=== PATIENT | female | born 1935 | race Caucasian/White ===

== ENCOUNTER 2022-09-16 11:35 | Day surgery (SDC) | payer MEDICARE, OTHER, SELFPAY ==
[2022-09-16] VITALS (7 sets, daily range): BP systolic 100–159; BP diastolic 51–78; PULSE 74–88; RESP 13–19; TEMP 36.3–36.7; O2SAT 83–98; BMI 29.2
--- NOTE | 2022-09-16 | PATH_ITS ---
[facility] Accession Number: [id number] No. of containers..05 Tissue . 01 Material submitted: . PART A: gastrointestinal site - ANTRUM BIOPSY PART B: gastrointestinal site - ANGULARIS BIOPSY PART C: gastrointestinal site - LESSER CURVATURE BIOPSY PART D: gastrointestinal site - GREATER CURVATURE BIOPSY PART E: gastrointestinal site - GASTRIC BODY BIOPSY . 01 Diagnosis: A. Stomach, Antrum, Biopsy: Antral mucosa with mild chronic gastritis. Negative for Helicobacter by immunohistochemistry. Negative for intestinal metaplasia. Negative for dysplasia and malignancy. . B. Stomach, Angularis, Biopsy: Body-type mucosa with mild chronic gastritis. Negative for Helicobacter by immunohistochemistry. Negative for intestinal metaplasia. Negative for dysplasia and malignancy. . C. Lesser Curvature, Biopsy: Body-type mucosa with mild chronic gastritis. No evidence of Helicobacter on H/E stain. Negative for intestinal metaplasia. Negative for dysplasia and malignancy. . D. Stomach, Greater Curvature, Biopsy: Body-type mucosa with proton inhibitor-like changes. No evidence of Helicobacter on H/E stain. Negative for intestinal metaplasia. Negative for dysplasia and malignancy. . E. Stomach, Body, Biopsy: Superficial fragments of body-type mucosa with mild chronic inflammation. Negative for Helicobacter by immunohistochemistry. Negative for intestinal metaplasia. Negative for dysplasia and malignancy. [facility] 09/23/2022 1357 Local . 01 Electronically signed: . Kalee Davis MD, Pathologist NPI- [id number] . 01 Gross description: . Part A: ANTRUM BIOPSY: Received in formalin are 2 fragment(s) of forde, soft tissue measuring 0.3 x 0.1 x 0.1 cm to 0.3 x 0.1 x 0.1 cm submitted entirely in 1 cassette(s) Part B: ANGULARIS BIOPSY: Received in formalin are 2 fragment(s) of forde, soft tissue measuring 0.2 x 0.1 x 0.1 cm to 0.1 x 0.1 x 0.1 cm submitted entirely in 1 cassette(s) Part C: LESSER CURVATURE BIOPSY: Received in formalin is 1 fragment(s) of forde, soft tissue measuring 0.3 x 0.2 x 0.1 cm submitted entirely in 1 cassette(s) Part D: GREATER CURVATURE BIOPSY: Received in formalin are 2 fragment(s) of forde, soft tissue measuring 0.3 x 0.1 x 0.1 cm to 0.3 x 0.1 x 0.1 cm submitted entirely in 1 cassette(s) Part E: GASTRIC BODY BIOPSY: Received in formalin is 1 fragment(s) of forde, soft tissue measuring 0.3 x 0.1 x 0.1 cm submitted entirely in 1 cassette(s) /CPE 09/17/2022 0650 Local . 01 Microscopic: . A. An immunohistochemical stain was performed to evaluate for Helicobacter organisms and is negative. The control stain showed appropriate reactivity. . B. An immunohistochemical stain was performed to evaluate for Helicobacter organisms and is negative. The control stain showed appropriate reactivity. . E. An immunohistochemical stain was performed to evaluate for Helicobacter organisms and is negative. The control stain showed appropriate reactivity. . * This test was developed and its performance characteristics determined by [employer]. It has not been cleared or approved by the U.S. Food and Drug Administration. The FDA has determined that such clearance or approval is not necessary. This test is used for clinical purposes. It should not be regarded as investigational or for research. . 01 Pathologist provided ICD-10: K21.9 . 01 CPT . 463449, 337221, 314780, 104362, 786464, A29001 Specimen Comment: A courtesy copy of this report has been sent to [phone] Performed at: 01 [facility] [address] [place] [address] [address], [place], [place] [id number] MD Samy Mooney MD Phone: [phone]
--- NOTE | 2022-09-16 12:20 | PM.HP.1 ---
History of Present Illness History of Present Illness Date Patient Seen: 09/16/22 Time Patient Seen: 12:20 Chief complaint: EGD Narrative: History of focal gastric intestinal metaplasia. History equivocal for Barretts. I reviewed the recent clinic note by Dr. García. No significant changes. Meds Home Medications and Allergies Home Medications Medication Instructions Recorded Confirmed Type atorvastatin 20 mg tablet 20 mg PO DAILY 09/16/22 09/16/22 History fluoxetine 40 mg capsule 40 mg PO DAILY 09/16/22 09/16/22 History levothyroxine 75 mcg capsule 75 mcg PO DAILY 09/16/22 09/16/22 History pantoprazole 40 mg tablet,delayed 40 mg PO DAILY 09/16/22 09/16/22 History release triamterene 37.5 1 tab PO DAILY 09/16/22 09/16/22 History mg-hydrochlorothiazide 25 mg tablet Allergies Allergy/AdvReac Type Severity Reaction Status Date / Time No Known Drug Allergies Allergy Verified 09/16/22 11:59 Review of Systems Review of Systems ROS: Yes All systems reviewed with the patient and are negative except as otherwise documented Exam Const General: cooperative HENMT Head: normal to inspection Eyes General: appearance normal, both eyes and all related structures Neck Neck: normal visual inspection Chest Chest: normal inspection of the chest Resp Effort & Inspection: normal respiratory effort Cardio Rate: regular rate GI Inspection: normal to inspection Skin General: no rashes or lesions noted Neuro General: patient alert and patient awake Extrem General: normal to inspection and no pedal edema Psych Appearance: grossly normal Assessment & Plan Assessment & Plan narrative: 87-year-old female with a remote history of possible Barretts and focal gastric intestinal metaplasia. EGD is pursued today. Time Spent With Patient Critical Care time: I spent a total of [] minutes of critical care time on this patient's care today; this time is exclusive of procedural time.
--- NOTE | 2022-09-16 12:22 | PM.PREOP ---
Pre-operative Note Interval Note History & Physical reviewed/Exam performed by Physician: Yes Changes to H&P: No ASA Class (for procedural sedation): II
[2022-09-16] MEDS: LACTATED RINGERS 1,000 ML 42 ML IV (12:32)
--- NOTE | 2022-09-16 13:15 | PM.OP.EGD ---
Operative Date/Time/Diagnoses Date of procedure: 09/16/22 Time of procedure: 13:15 Pre-op diagnosis: History of focal gastric intestinal metaplasia and equivocal Rush's Post-op diagnosis: same Procedure & Clinicians Study performed: EGD with biopsies Same procedure as scheduled: Yes Indications: History of focal gastric intestinal metaplasia and equivocal Barretts Surgeon: Tl Kim Procedure Notes SCOAP/Timeout: Done Procedure in detail: After the risks and benefits were explained, written and verbal informed consent was obtained. The patient was brought into the procedure room and placed into the left lateral decubitus position. Please see anesthesia notes for sedation details. The scope was introduced into the mouth through the bite block and advanced under direct visualization to the 2nd portion of the duodenum. The scope was slowly withdrawn carefully examining the mucosa for any defects or lesions. Retroflexed views were accomplished in the stomach. The stomach was decompressed, the scope was then removed from the patient who tolerated the procedure well. Sedation minutes: 16 Complications: none Impression: 1. Duodenum: This was normal from the bulb through to the 2nd portion. 2. Stomach: No ulcers no outlet obstruction no mass lesions. Retroflexed views of the LES were unremarkable. Random gastric biopsies were taken for mapping. There was minimal diffuse gastropathy. Samples were acquired from the antrum, angularis, lesser curve, greater curve, and gastric body proximally. In the greater curve specimen, there was a diminutive polyp included. 3. Esophagus: The squamocolumnar junction generally correlated quite nicely with the top of the gastric folds. This did not appear to suggest Barretts. There was no evidence of any inflammation. I did not feel compelled to take biopsies from the GEJ. The remainder of the esophagus was unremarkable. GEJ was at about 36 cm from the incisors. Very subtle sliding hiatal hernia was noted. Endoscopic diagnosis 1. Minimal gastropathy 2. Diminutive gastric polyp 3. Subtle sliding hiatal hernia 4. No suggestion of Barretts Post-procedure Plan for aftercare: 1. Await histopathology. 2. Continue anti-reflux therapy. Disposition: PACU
== END 2022-09-16 13:50 | disposition home or self-care (01) ==
PROVIDERS: PCP Registered Nurse; Referring Provider Internal Medicine Gastroenterology; Visit Provider Internal Medicine Gastroenterology
PROC: 0DJ08ZZ Inspection of Upper Intestinal Tract, Via Natural or Artificial Opening Endoscopic (ICD-10-PCS; CPT 43235; principal; 2022-09-16 13:00)
DX: Z09 Encounter for follow-up examination after completed treatment for conditions other than malignant neoplasm (principal); Z87.19 Personal history of other diseases of the digestive system; K31.9 Disease of stomach and duodenum, unspecified; K44.9 Diaphragmatic hernia without obstruction or gangrene; K31.7 Polyp of stomach and duodenum; K29.50 Unspecified chronic gastritis without bleeding
CPT/HCPCS: 43239; J2704